=== PATIENT | female | born 1960 | race Caucasian/White ===

== ENCOUNTER 2019-06-25 15:33 | Emergency (ER) | payer OTHER ==
[~2019-06-25] VITALS: Ht 160 cm; Wt 57.7 kg
[2019-06-25 15:41] VITALS: BP 120/76
--- NOTE | 2019-06-25 15:53 | NUR ---
PT TO XRAY
[2019-06-25] MEDS ORDERED: CYCL-1 PO (16:12)
[2019-06-25] MEDS ORDERED: ketorolac trometh inj. 60 MG/2 ML VIAL IM ONE (16:15)
== END 2019-06-25 16:49 | disposition home or self-care (01) ==
LOC: ER 15:35
DX: S13.4XXA Sprain of ligaments of cervical spine, initial encounter (principal); Z79.899 Other long term (current) drug therapy; V89.2XXA Person injured in unspecified motor-vehicle accident, traffic, initial encounter; Y93.89 Activity, other specified; Y92.488 Other paved roadways as the place of occurrence of the external cause; Y99.8 Other external cause status
CPT/HCPCS: 72040; 96372; 99283; J1885

== ENCOUNTER 2024-10-25 13:36 | Outpatient (CLI) | payer OTHER ==
[~2024-10-25 13:36] MED LIST: CYCL-1 PO
== END 2024-10-25 23:59 | disposition home or self-care (01) ==
LOC: MRI02 13:36
PROVIDERS: ATTEND Family Medicine
DX: M50.123 Cervical disc disorder at C6-C7 level with radiculopathy (principal); M47.892 Other spondylosis, cervical region; M48.02 Spinal stenosis, cervical region
CPT/HCPCS: 72141